=== PATIENT | female | born 1965 | race African-American/Black ===

== ENCOUNTER 2022-06-06 08:06 | Emergency (ER) | payer OTHER ==
[~2022-06-06] VITALS: Ht 162.6 cm; Wt 102.0 kg
[2022-06-06] MEDS ORDERED: KETOROLAC 15MG/ML VIAL IV ONE (11:15)
[2022-06-06] MEDS ORDERED: DIPHENHYDRAMINE 50MG/ML VIAL IV ONE (11:15)
[2022-06-06] MEDS ORDERED: METOCLOPRAMIDE HCL 10MG/2ML VIAL IV ONE (11:15)
[2022-06-06] MEDS ORDERED: SODIUM CHLORIDE 0.9% 1,000 ML IV ONE (11:15)
[2022-06-06 11:58] VITALS: BP 168/87
[2022-06-06] MEDS ORDERED: SUMA50TA16 MT (12:53)
== END 2022-06-06 13:10 | disposition home or self-care (01) ==
LOC: ER 08:06
DX: G43.909 Migraine, unspecified, not intractable, without status migrainosus (principal); I10 Essential (primary) hypertension; Z88.8 Allergy status to other drugs, medicaments and biological substances
CPT/HCPCS: 96361; 96374; 96375; 99284; J1200; J1885; J2765; J7030